=== PATIENT | male | born 1990 | race Caucasian/White ===

== ENCOUNTER 2017-05-26 13:46 | Emergency (ER) | payer OTHER, BC ==
[~2017-05-26] VITALS: Wt 72.6 kg
[~2017-05-26 13:46] MED LIST: LOMOTIL 0.025 M1 TAB PO; ZOFRAN ODT8 MG PO
[2017-05-26] MEDS ORDERED: AUGMENTIN 875875 MG PO (14:12)
== END 2017-05-26 14:20 | disposition home or self-care (01) ==
LOC: ED 13:46
DX: S50.812A Abrasion of left forearm, initial encounter (principal); W55.03XA Scratched by cat, initial encounter; Y93.89 Activity, other specified; Y92.89 Other specified places as the place of occurrence of the external cause; Y99.9 Unspecified external cause status

== ENCOUNTER 2021-04-14 00:23 | Emergency (ER) | payer OTHER ==
[~2021-04-14 00:23] MED LIST changes: +AUGMENTIN 875875 MG PO
[2021-04-14 01:17] LABS: BASO % 0.5 % (0.0-1.0); EOS # 0.2 10*3/uL (0.0-0.4); EOS % 2.5 % (1.0-4.0); HEMATOCRIT 38.9 % (42.0-52.0); LYMPH # 2.5 10*3/uL (1.3-4.4); LYMPH % 30.8 % (27.0-41.0); MEAN CELL VOLUME 86.6 fl (80.0-94.0); MEAN CORPUSCULAR HGB 29.6 pg (27.0-31.0); MEAN CORPUSCULAR HGB CONC 34.2 g/dl (33.0-37.0); MEAN PLATELET VOLUME 9.4 fl (9.6-12.3); MONO # 0.7 10*3/uL (0.1-1.0); NEUT # 4.7 10*3/uL (2.3-7.9); PLATELET COUNT AUTOMATED 253 10*3/uL (130-400); RED BLOOD COUNT 4.49 10*6/uL (4.50-5.90); RED CELL DISTRI WIDTH 12.1 % (0-14.5); WHITE BLOOD COUNT 8.3 10*3/uL (4.8-10.8)
[2021-04-14 01:34] LABS: ALBUMIN 3.8 gm/dl (3.1-4.5); ALKALINE PHOSPHATASE 87 U/L (45-117); BUN 15 mg/dl (7-24); CHLORIDE 111 mmol/L (98-107); CREATININE 1.21 mg/dL (0.70-1.30); POTASSIUM 3.6 mmol/L (3.5-5.1); SGOT/AST 23 IU/L (3-35); SGPT/ALT 35 U/L (12-78); SODIUM 140 mmol/L (136-145); TOTAL PROTEIN 6.9 gm/dL (6.4-8.2)
[2021-04-14 01:35] LABS: TROPONIN I < 0.015 ng/ml (<0.045)
== END 2021-04-14 03:12 | disposition home or self-care (01) ==
LOC: ED 00:23
PROVIDERS: Emergency Medicine
DX: T67.5XXA Heat exhaustion, unspecified, initial encounter (principal); R55 Syncope and collapse; R51.9 Headache, unspecified

== ENCOUNTER 2022-04-29 20:08 | Emergency (ER) | payer OTHER ==
[~2022-04-29] VITALS: Ht 182.8 cm; Wt 77.1 kg
[2022-04-29] MEDS ORDERED: CYCLOBENZAPRINE10 MG PO (20:35)
[2022-04-29] MEDS ORDERED: PREDNISONE50 MG PO (20:35)
[2022-04-29] MEDS ORDERED: Motrin,Rufen800 MG PO (20:35)
== END 2022-04-29 20:56 | disposition home or self-care (01) ==
LOC: ED 20:08
DX: M54.50 Low back pain, unspecified (principal); Z90.89 Acquired absence of other organs

== ENCOUNTER 2025-09-09 19:09 | Emergency (ER) | payer OTHER ==
[~2025-09-09] VITALS: Ht 182.8 cm; Wt 90.7 kg
[~2025-09-09 19:09] MED LIST changes: +CYCLOBENZAPRINE10 MG PO; +Motrin,Rufen800 MG PO; +PREDNISONE50 MG PO
[2025-09-09] MEDS ORDERED: NAPROSYN500 MG PO (19:47)
== END 2025-09-09 19:57 | disposition home or self-care (01) ==
LOC: ED 19:09
DX: S60.011A Contusion of right thumb without damage to nail, initial encounter (principal); X00.0XXA Exposure to flames in uncontrolled fire in building or structure, initial encounter; Y93.89 Activity, other specified; Y92.89 Other specified places as the place of occurrence of the external cause; Y99.8 Other external cause status